=== PATIENT | female | born 1950 | race Two or more races ===

== ENCOUNTER → 2020-10-13 | Emergency (ER) | payer OTHER ==
[~2020-10-13] VITALS: Ht 167.6 cm; Wt 90.7 kg
[~2020-10-13] MED LIST: AZOPT10 ML; ECOTRIN81 MG; HYDROXYCHLOROQ200 MG; INDERAL LA120 MG; LISINOPRIL10 MG; MILLIPRED5 MG; NEURONTIN300 MG; PROTONIX40 M1; WELLBUTRIN XL150 M1; ZOCOR20 MG
== END | disposition left against medical advice (07) ==
LOC: ER 17:22
DX: Z53.20 Procedure and treatment not carried out because of patient's decision for unspecified reasons (principal)